=== PATIENT | female | born 1980 | race African-American/Black ===

== ENCOUNTER 2021-01-24 12:44 | Emergency (ER) | payer OTHER ==
[~2021-01-24] VITALS: Ht 165.1 cm; Wt 81.7 kg
[2021-01-24] MEDS ORDERED: SILALITE 0.1%1 EACH TOP (14:03)
[2021-01-24] MEDS ORDERED: FLAGYL500 M1 PO (14:03)
[2021-01-24 14:18] VITALS: BP 140/82
== END 2021-01-24 14:21 | disposition home or self-care (01) ==
LOC: M.ERS 12:44
DX: N76.0 Acute vaginitis (principal); B96.89 Other specified bacterial agents as the cause of diseases classified elsewhere; L30.9 Dermatitis, unspecified